=== PATIENT | female | born 1970 | race Two or more races ===

== ENCOUNTER 2018-05-24 16:25 | Emergency (ER) | payer BC, OTHER ==
[~2018-05-24] VITALS: Ht 165.1 cm; Wt 77.1 kg
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
[2018-05-24 17:07] VITALS: BP 122/70
--- NOTE | 2018-05-24 17:08 | NUR ---
Patient discharged to home in stable conditon. Written and verbal after care instructions given. Patient and pt's verbalize understanding of instructions.
== END 2018-05-24 17:08 | disposition home or self-care (01) ==
LOC: ER 16:27
DX: O71.89 Other specified obstetric trauma (principal); R51 Headache; Z88.2 Allergy status to sulfonamides; V43.92XA Unspecified car occupant injured in collision with other type car in traffic accident, initial encounter; Y93.89 Activity, other specified; Y92.410 Unspecified street and highway as the place of occurrence of the external cause; Y99.8 Other external cause status; Z3A.08 8 weeks gestation of pregnancy
CPT/HCPCS: 76856; A4663